=== PATIENT | male | born 1995 ===

== ENCOUNTER 2020-10-11 05:34 | Emergency (ER) | payer SELFPAY ==
[2020-10-11 05:46] VITALS: BP 140/70; PULSE 112; RESP 28; O2SAT 100; BMI 25.0
--- NOTE | 2020-10-11 06:29 | ED.OVERDOSE ---
HPI - Overdose General Chief Complaint: ETOH/Substance Use Stated Complaint: COCAINE USE Time Seen by Provider: 10/11/20 06:29 Source: patient and EMS Mode of arrival: EMS History of Present Illness HPI Narrative: This is a 24-year-old male who is brought in by EMS for substance use, cocaine/heroin for a week, patient told EMS that he was homeless but denies any other complaints. He continues to ask for his girlfriend Related Data Allergies Allergy/AdvReac Type Severity Reaction Status Date / Time No Known Allergies Allergy Verified 10/11/20 05:50 Review of Systems Review of Systems: Pertinent positives and negatives as stated in HPI and otherwise review of systems unable to obtain. PMFSH Past Medical History Source: nursing notes reviewed Medical History Substance abuse Physical Exam Vital Signs: Vital Signs: Last Vital Signs Resp 28 H 10/11/20 05:46 Body Mass Index 25.0 VITAL SIGNS: Reviewed (unable to obtain). GENERAL: Well developed, well nourished, agitated HEAD: Normocephalic/atraumatic EYES: PERRLA, EOMI OROPHARYNX: no oral lesions noted, posterior pharynx clear, dry mucosa NECK: Supple, no adenopathy LUNGS: Normal breath sounds. No adventitious sounds or accessory muscle use. SpO2< Unable to obtain> CARDIOVASCULAR: Regular rate and rhythm without noted murmurs ABDOMEN: Soft, non-tender, non-distended with bowel sounds. NEUROLOGIC: Alert but agitated and moving all over the place. Course Course Course Narrative: This is a 24-year-old male with history and clinical presentation consistent with polysubstance use. He will need to be observed until clinically sober and then may be discharged home. Signed out to Dr Currie. Discharge Plan Discharge Clinical Impression: Polysubstance (excluding opioids) dependence, daily use Patient Disposition: Home, Self-Care Instructions: Polysubstance Abuse (ED) Additional Instructions: Return to the ER for any acute worsening of symptoms.
[2020-10-11 10:17] VITALS: RESP 14
--- NOTE | 2020-10-11 11:35 | MHC.RECOVSUP ---
Recovery Support note: Patient is a 24 year old [place] speaking male who presented to [facility] ED via EMS due to substance use. This typewriter repairer met with patient to offer support and treatment options. Patient declines services at this time, states that he would like to leave. Informed patient that there is help available if he is interested down the road. This typewriter repairer available as needed.
[2020-10-11 14:17] VITALS: RESP 16
== END 2020-10-11 14:47 | disposition home or self-care (01) ==
LOC: HO.ED 14:34
PROVIDERS: Emergency Provider Emergency Medicine Emergency Medical Services
DX: T40.1X1A Poisoning by heroin, accidental (unintentional), initial encounter (principal); F14.10 Cocaine abuse, uncomplicated; F11.10 Opioid abuse, uncomplicated; Y92.9 Unspecified place or not applicable; Z71.51 Drug abuse counseling and surveillance of drug abuser
CPT/HCPCS: 99284